=== PATIENT | female | born 1965 | race African-American/Black ===

== ENCOUNTER 2022-01-05 00:30 | Day surgery (SDC) | payer OTHER, SELFPAY ==
[2021-12-29 18:27] VITALS: BMI 38.1
--- NOTE | 2021-12-29 18:29 | SUR.PREOP ---
Report to the Outpatient Waiting Room, entrance under the green pavilion located off [facility], at time _0800 on date __01/05/22 . OR Time: _1000 . - You will be asked a series of questions to screen for COVID 19 for your protection. - A mask is required within the hospital. - one visitor allowed,to remain in pt room, Preoperative COVID Testing Requirements: No COVID Test needed if: (proof is required; if not received patient will have Rapid Test prior to entry) - Patient has received COVID Vaccine at least 14 days prior to procedure date or - Patient has positive COVID test result within last 90 days of surgery date. COVID Test needed if above criteria is not met If not COVID vaccinated a COVID test must be conducted within 72 hours of surgery and patient is asked to isolate self from time of testing until procedure. You will go to the [facility] for your COVID testing. The [facility] Testing site is located at the corner of [address] from [facility]. You will only be called if COVID results are positive and your surgeon may reschedule your elective surgery date. Patients may have clear liquids (water, carbonated beverages, clear teas, apple juice) until 3 hours prior to surgery with a maximum of 20 ounces. - No food from midnight until time of surgery - Infants may have breast milk until 4 hours before surgery, infant formula 6 hours prior to surgery. - Children will be allowed to drink immediately following surgery. If applicable, please bring a bottle or sippy cup to assist with drinking. Juice, water, soda, and popsicles are readily available. For infants on formula, please bring formula the day of surgery. Pacifiers are allowed. Take the following medications with a SIP of water the morning of surgery: ____amlodipine Medications to discontinue per physician _vitamin Date to take last dose__01/02/22 Please no make-up, nail tuvaluan, hairspray, perfume, deodorant, or body powder the day of surgery. No jewelry (including any body piercings) or valuables the day of surgery, leave them at home. Please take a shower or bath the night before, or the morning of, surgery with an antibacterial soap. Wear comfortable, loose fitting clothing. Children are encouraged to wear pajamas. - Jewelry must be removed prior to entering the operating room. Rings and piercings that are not removed may be cut off. - The hospital will not accept responsibility for valuables. - Please leave all valuables, including medications, at home the day of surgery. If you are going home after surgery, a licensed company tanker truck driver must drive you home. - NO public transportation without another adult. - We recommend that an adult stay with you for 24 hours following discharge. - We also recommend that you do not drive, make important decision, drink alcoholic beverages, or take any drugs that were not prescribed by your health care provider for at least 24 hours after your discharge time. For Pediatric surgeries, we recommend two adults accompany the child home (only one inside the building at this time). Follow any additional instructions given to you from your surgeon. Telephone instructions given to jose abrams and asked if any additional questions and then verbalized understanding. Patient advised to call surgeon office or pre surgery nurse liaison [phone] if any additional questions.
--- NOTE | 2022-01-05 07:37 | PM.HPGS ---
History of Present Illness History of Present Illness Consent: Risks, benefits, and alternatives have been discussed and questions answered. Patient agrees to proceed with procedure. Chief complaint: postmenopausal bleeding Narrative: Janna Burt is a 56 year old female has had on and off spotting since July 05. Prior hysteroscopy in April of 2020 revealed polyps. Pelvic ultrasound reveals a thin endometrium at 2.7mm. However due to the continued spotting it is recommended to proceed with hysteroscopy. Risks of infection, bleeding, and perforation were reviewed. Possible pathology is discussed. Patient agrees to proceed. Review of Systems Review of Systems: not repeated day of surgery; patient states no changes in status PMFSH Past Medical History Medical History (Updated 01/05/22 @ 07:41 by Alecia Partida MD) HTN (hypertension) (normal spontaneous vaginal delivery) X2 Pseudotumor cerebri Status post hysteroscopy Surgical History Surgical History (Updated 01/05/22 @ 07:40 by Alecia Partida MD) Status post cholecystectomy Social History Social History Smoking status: Never smoker Alcohol intake: current Drinks per week: 2 Living arrangements: with family Spiritual care concerns: No Meds Home Medications and Allergies Home Medications Medication Instructions Recorded Confirmed Type amlodipine 5 mg PO DAILY 12/29/21 12/29/21 History celecoxib 200 mg PO DAILY 12/29/21 12/29/21 History multivitamin [Multi-Daily] 1 tablet PO DAILY 12/29/21 12/29/21 History Allergies Allergy/AdvReac Type Severity Reaction Status Date / Time amoxicillin Allergy Intermediate Hives Verified 12/29/21 18:04 ceftriaxone [From Rocephin] Allergy Intermediate Hives Verified 12/29/21 18:05 ibuprofen Allergy Intermediate Palpitation Verified 12/29/21 18:05 s Exam Const: General: healthy appearing and alert Orientation/consciousness: patient oriented x3 GI: GI Palp: Yes Soft to palpation, No Tenderness to palpation present (GI) and No Palpable mass present : External Female Exam: normal external appearance Speculum Exam - Vagina: normal appearance of the vagina and normal vaginal discharge Speculum Exam - Cervix: normal appearance of the cervix Bimanual exam- vagina & uterus: uterine size normal and consistency normal Bimanual Exam- Adnexa, other: normal adnexae and No adnexal tenderness Neuro: General: patient oriented x3 Assessment and Plan Assessment and plan (1) History of postmenopausal bleeding: Code(s): Z87.42 - Personal history of other diseases of the female genital tract Status: Acute Assessment and Plan: Given history of polyps and continued spotting plan is to proceed with repeat hysteroscopy
--- NOTE | 2022-01-05 07:41 | WPDHPUPDATE1 ---
History and Physical Update Update Date/Time: 01/05/22 07:41 History and Physical has been reviewed, including an updated exam of the patient. There are NO changes in the patient's condition. Risks, benefits, and alternatives have been discussed and questions answered. Patient agrees to proceed with procedure.
[2022-01-05] MEDS: ACETAMINOPHEN 500 MG TABLET 1000 MG PO (08:02)
[2022-01-05 08:15] VITALS: BP 138/73; PULSE 75; RESP 20; TEMP 36.8; O2SAT 100
[2022-01-05] MEDS: LACTATED RINGERS 1,000 ML 30 ML IV CONT (08:25)
--- NOTE | 2022-01-05 08:49 | P.PNAN_ITS ---
Anes - Initial Pre Proc Eval Procedure: Operation Date: 01/05/22 10:00 Proposed Procedures p Hysteroscopy Dilation and Curettage - Alecia Partida MD Date/Time: 01/05/22 08:49 Surgeon: Alecia Partida MD Pre Op Diagnosis: postmenopausal bleeding Patient Data Age: 56 Gender: F Height: 1.6 m Weight: 97.3 kg Last Vital Signs Temp 36.8 C 01/05/22 08:15 Pulse 75 01/05/22 08:15 Resp 20 01/05/22 08:15 BP 138/73 01/05/22 08:15 Pulse Ox 100 01/05/22 08:15 Allergies Allergy/AdvReac Type Severity Reaction Status Date / Time amoxicillin Allergy Intermediate Hives Verified 01/05/22 08:03 ceftriaxone [From Rocephin] Allergy Intermediate Hives Verified 01/05/22 08:03 ibuprofen Allergy Intermediate Palpitation Verified 01/05/22 08:03 s/Rash Home Medications Medication Instructions Recorded Confirmed Type amlodipine 5 mg PO DAILY 12/29/21 01/05/22 History celecoxib 200 mg PO DAILY 12/29/21 01/05/22 History multivitamin [Multi-Daily] 1 tablet PO DAILY 12/29/21 01/05/22 History Patient hx anesthesia problems: none Family hx anesthesia problems: none Results Review: All pre-operative results and documents have been reviewed as part of the pre-operative evaluation. [facility] Past Medical History Medical History (Updated 01/05/22 @ 07:41 by Alecia Partida MD) HTN (hypertension) (normal spontaneous vaginal delivery) X2 Pseudotumor cerebri Status post hysteroscopy Surgical History Surgical History Status post cholecystectomy Social History Social History Smoking status: Never smoker Alcohol intake: current Drinks per week: 2 Living arrangements: with family Spiritual care concerns: No Anes - Eval Final PreProcedure Day of Procedure 01/05/22 08:49 Patient weight: obese Heart: regular rate and rhythm Lungs: clear to auscultation Airway: Mallampati scale class II Neurological: alert and oriented Last oral intake: >/= 8 hours Emergent: no Anesthetic plan: proceed Anesthesia type and monitoring: general GIVS and standard monitoring Results Review: All pre-operative results and documents have been reviewed as part of the pre-operative evaluation. Informed Consent: The patient's anesthetic plan and its attendant risks and benefits were discussed with the patient/family/POA. Questions were solicited and answers provided to the satisfaction of the patient/family/POA.
[2022-01-05] MEDS: LIDOCAINE HCL 1% LOCAL INJ 20 ML VIAL 10 ML INFILTRATE (09:10)
[2022-01-05] MEDS: KETOROLAC 30 MG/ML VIAL (*BKC) IV PUSH (09:27)
--- NOTE | 2022-01-05 09:32 | W.PM.PROC2 ---
Procedure Note - Detailed Date of Procedure 01/05/22 Pre-op Diagnosis postmenopausal bleeding Post-op Diagnosis same Procedure Performed D&C hysteroscopy with MyoSure Surgeon Alecia Partida MD Anesthesia MAC and local Findings Uterus sounds to 9cm. There is thickening noted right posterior wall and endocervical junction and the left anterior wall. Remainder of the endometrium appears atrophic. Description of Procedure The patient is taken to the operating room and placed under anesthesia in the dorsal lithotomy position. She was prepped and draped in the usual sterile fashion. [place] speculum was placed in the vagina and the cervix is grasped on the anterior lip with a tenaculum. Each quadrant of the cervix was injected with 1% lidocaine. The uterus is sounded to 9cm. The cervix is serially dilated to an 8 Hegar. The diagnostic hysteroscope was placed with the above-stated findings. The device is removed and the MyoSure device opened and placed. Both thickened areas are excised using the MyoSure device. The MyoSure device is removed and the medium sharp curette used to curette the endometrium until a good uterine cry was noted in all areas. Minimal if any material was obtained consistent with the visual appearance. All instruments are removed. The patient is awakened from anesthesia and taken to recovery in stable condition. Sponge, needle, and instrument counts are correct per the OR staff. Estimated Blood Loss 5 Drains No Packing No Pathology yes (Endometrial shavings and curettings) Complications No immediate complications Condition stable Disposition PACU
[2022-01-05 09:35] VITALS: BP 136/69; PULSE 83; RESP 12; O2SAT 94
[2022-01-05 10:05] VITALS: BP 129/75; PULSE 70; RESP 14; O2SAT 95
== END 2022-01-05 10:30 | disposition home or self-care (01) ==
PROVIDERS: PCP Family Medicine; Visit Provider Obstetrics & Gynecology Gynecology
PROC: 0U5B8ZZ Destruction of Endometrium, Via Natural or Artificial Opening Endoscopic (ICD-10-PCS; CPT 58563; principal; 2022-01-05 10:00)
DX: N95.0 Postmenopausal bleeding (principal); N84.0 Polyp of corpus uteri; I10 Essential (primary) hypertension; G93.2 Benign intracranial hypertension; E66.9 Obesity, unspecified; Z68.38 Body mass index [BMI] 38.0-38.9, adult
CPT/HCPCS: 58558; 88305; A9270; J1100; J1885; J2250; J2270; J2405; J2704; J7030; J7120